=== PATIENT | female | born 1985 | race Caucasian/White ===

== ENCOUNTER 2016-10-20 23:25 | Emergency (ER) | payer OTHER ==
[~2016-10-20] VITALS: Ht 162.6 cm; Wt 63.0 kg
[~2016-10-20 23:25] MED LIST: DEPO PROVERA IM; IBUP-1827 PO; METO10TA3 PO; PROM25TA14 PO
[2016-10-20 23:38] VITALS: BP 134/73; PULSE 66; RESP 18; O2SAT 98
--- NOTE | 2016-10-20 23:58 | ED.REPORT ---
HPI-Abd Pain F Under 40 Date of Service Oct 20, 2016 ED Provider: Jose Masterson Patient is a 31 year old female with a hx of endometriosis who presents to the ED with multiple medical complaints. Associated symptoms include abdominal pain , dysuria, lightheadedness, headache, nausea, hot flashes, and blurred vision. She denies diarrhea, fever, vomiting, or any other symptoms. She gets Lupron injections and feels like it is wearing off. Nursing Notes Stated Complaint: STOMACH PAIN,LIGHT HEADED Chief Complaint: Female Abdominal Pain Nursing Notes Reviewed: Yes Allergies: Coded Allergies: codeine (Verified Allergy, Severe, Nausea,Vomiting,RASH, 02/03/16) ondansetron (Verified Allergy, Unknown, 02/03/16) Scheduled ([Depo Provera]) 150 MG IM Q 3 MOS Scheduled PRN Ibuprofen (Ibuprofen) 600 Mg Tablet 600 MG PO Q6H PRN PRN For Pain Metoclopramide (Metoclopramide) 10 Mg Tablet 10 MG PO QID PRN PRN For Nausea Prochlorperazine Maleate (Compazine Suppository) 25 Mg Supp.rect 25 MG RC Q8 PRN PRN For Nausea/Vomiting Promethazine (Promethazine) 25 Mg Tablet 25 MG PO Q4H PRN PRN For Nausea General Time Seen by MD: 23:57 Chief Complaint Abdominal pain Hx Obtained From: Patient Arrived By: Walk-in Onset Occurred: Onset unknown Location: : Diffuse Quality: Painful Severity: Current: Moderate Severity: Maximum: Moderate Associated with: Reports: Urinary tract symptoms Past Medical History Past Medical History Endometriosis Anxiety Aortic stenosis HPV Reports: Asthma Past Surgical History exploratory laparoscopy endometrial polypectomy Family History Noncontributory Smoking History Former Smoker Social History Alcohol Use: Denies alcohol use Other Social History: Local resident Ambulatory Status Independent Review of Systems Review of Systems Note: +hot flashes Constitutional: Denies: Fever GI: Reports: Abdominal pain, Nausea, Denies: Diarrhea, Vomiting Female: Reports: Dysuria Complete sys rev & neg: except as marked. Eyes: Reports: Blurred bilateral Neurologic: Reports: Headache Physical Exam Initial Vital Signs Vital Signs (First) Date Time Temp Pulse Resp B/P Pulse Ox O2 Delivery O2 Flow Rate FiO2 10/20/16 23:38 36.8 66 18 134/73 98 Room Air Initial VS: Reviewed, Vital signs normal Head / Eyes: Atraumatic, Normocephalic Neck: Full range of motion Skin: Warm, Dry Neurologic: Alert, Oriented, Nonfocal Psychiatric: Mood/affect normal, Behavior normal, Normal thought content General/Constitutional: Awake, Alert, Well developed Respiratory / Chest: Breath sounds NL, Breath sounds = bilat, No respiratory distress Cardiovascular: Heart rate NL, Regular rhythm, Heart sounds NL Abdomen: Soft Minimally tender to palpation Back: Atraumatic Mouth: Positive: Mucous membranes dry Interpretation & Diagnostics Lab Results Interpretation Result Diagram: 10/21/16 0029 10/21/16 0029 Test 10/21/16 00:29 10/21/16 01:33 White Blood Count 6.8th/mm3 (3.8-10.1) Red Blood Count 5.14mil/mm3 (3.90-5.20) Hemoglobin 13.5g/dL (12.0-15.6) Hematocrit 41.1% (35.0-46.0) Mean Corpuscular Volume 80.0fL (81-100) Mean Corpuscular Hemoglobin 26.3pg (27.0-35.0) Mean Corpuscular Hemoglobin Concent 32.8% (32.0-37.0) Red Cell Distribution Width 16.0% (12.3-15.4) Platelet Count 173bil/L (150-400) Neutrophils (%) (Auto) 59.4% (40-74) Lymphocytes (%) (Auto) 26.2% (14-46) Monocytes (%) (Auto) 11.6% (4-12) Eosinophils (%) (Auto) 2.3% (0-5) Basophils (%) (Auto) 0.4% (0-3) Sodium Level 140mEq/L (134-144) Potassium Level 4.5mEq/L (3.5-5.2) Chloride Level 100mEq/L (97-108) Carbon Dioxide Level 26mmol/L (18-29) Blood Urea Nitrogen 19mg/dL (6-20) Creatinine 0.93mg/dL (0.57-1.00) Estimat Glomerular Filtration Rate 101mL/min (>59) Glucose Level 92mg/dL (60-99) Calcium Level 9.4mg/dL (8.5-10.1) Magnesium Level 2.1mg/dL (1.6-2.6) Total Bilirubin 0.2mg/dL (0.0-1.2) Aspartate Amino Transf (AST/SGOT) 18U/L (0-50) Alanine Aminotransferase (ALT/SGPT) 15U/L (0-32) Alkaline Phosphatase 81U/L (25-150) Total Protein 7.4g/dL (6.4-8.4) Albumin 4.1g/dL (3.4-5.0) Lipase 38U/L (13-60) Urine Color Yellow (YELLOW) Urine Appearance Clear (CLEAR,HAZY) Urine pH 6.5 (5.0-8.0) Urine Specific [place] 1.010 (1.003-1.035) Urine Protein Negativemg/dL (NEG,TRACE) Urine Glucose (UA) Negativemg/dL (NEGATIVE) Urine Ketones Negativemg/dL (NEGATIVE) Urine Occult Blood Negative (NEGATIVE) Urine Nitrite Negative (NEGATIVE) Urine Bilirubin Negative (NEGATIVE) Urine Urobilinogen Normalmg/dL (NORMAL) Urine Leukocyte Esterase Negative (NEGATIVE) Urine RBC 0-2/hpf (0-2) Urine WBC 0-5/hpf (0-5) Urine Epithelial Cells Few/hpf (NONE-MOD) Urine Crystals None seen (NONE SEEN) Urine Bacteria None/hpf (NONE-FEW) Urine Hyaline Casts None/lpf (NONE) Urine Granular Casts None seen (NONE SEEN) Urine Waxy Casts None seen (NONE SEEN) Urine Red Blood Cell Casts None seen (NONE SEEN) Urine White Blood Cell Casts None seen (NONE SEEN) Urine Mucus None seen (None Seen) Urine Trichomonas None seen (NONE SEEN) Urine Yeast None (NONE SEEN) Urinalysis Comment None Urine Culture Reflexed Not indicated Re-Eval/Medical Decision Med Decision/Clinical Course Med Decision/Clinical Course: 31-year-old with diffuse abdominal pain and migraine. Improved after IV fluids and meds here. No more headache and abdominal symptoms resolved. Home with Compazine suppositories for headache and nausea when necessary. Follow-up with PCP Re-Evaluation/Progress : Time of Eval: 02:08 )( Re-Eval Abdomen: Soft Re-Evaluation/Progress Note: Discussed plan for discharge. Patient understands and agrees with plan. All questions addressed at this time. Counseled Regarding: Diagnosis, Lab results, Need for follow-up, When/why to return to ED Discharge & Departure Primary Impression: Abdominal Pain Generalized Additional Impression: Migraine Migraine type: unspecified Status migrainosus presence: without status migrainosus Intractability: not intractable Qualified Code: G43.909 - Migraine, unspecified, not intractable, without status migrainosus Disposition: Home Discharge Condition All VS Reviewed: Yes Condition: Improved Additional Instructions: Your labs are reassuring. I do not suspect a significant pathology in the abdomen. The nausea and generalized malaise are more likely related to her migraine. Follow-up with your doctor in the office. Compazine suppository if needed for nausea and for migraine. Return if any immediate issues, particularly worsening abdominal pain or intractable vomiting. Referrals: Pinky Fong MD (PCP) Scribe Attestation Portions of this note were transcribed by Eduar Santamaria. I, Dr. Masterson personally performed the history, physical exam and medical decision-making; I reviewed and confirmed the accuracy of the information in the transcribed note. Signed by: Eduar Santamaria 10/21/2016, 1408 copies to: Pinky Fong MD, Christopher W MD Oct 20, 2016 23:58 EDUAR SANTAMARIA Oct 21, 2016 00:07
[2016-10-21] MEDS ORDERED: 0.9% Sodium Chloride 1,000 ML IV ONE ×2 (00:04)
[2016-10-21] MEDS ORDERED: Haloperidol 5 mg/mL Inj IVPUSH ONE (00:05)
[2016-10-21] MEDS ORDERED: Ketorolac 15 mg/mL Inj IVPUSH ONE (00:05)
[2016-10-21] MEDS ORDERED: Dexamethasone 10 mg/mL Inj IVPUSH ONE (00:05)
[2016-10-21 00:44] LABS: BASOPHILS % (AUTO) 0.4 % (0-3); EOSINOPHILS % (AUTO) 2.3 % (0-5); MONOCYTES % (AUTO) 11.6 % (4-12); Mean Corpuscular Hemoglobin 26.3 pg (27.0-35.0); NEUTROPHILS % (AUTO) 59.4 % (40-74); Platelet Count 173 bil/L (150-400)
[2016-10-21 01:20] LABS: Magnesium 2.1 mg/dL (1.6-2.6)
[2016-10-21] MEDS ORDERED: MetoCLOpramide 5 mg/mL 2 mL Inj IVPUSH ONE (01:35)
[2016-10-21 01:50] LABS: APPEARANCE,URINE CLEAR (CLEAR,HAZY); COLOR,URINE YELLOW (YELLOW); OCCULT BLOOD,URINE NEGATIVE (NEGATIVE); PH,URINE 6.5 (5.0-8.0); UROBILINOGEN,URINE NORMAL (NORMAL)
[2016-10-21] MEDS ORDERED: PROC25SU30 RC (02:04)
[2016-10-21 02:27] VITALS: BP 128/70; PULSE 68; RESP 17; O2SAT 99
== END 2016-10-21 02:28 | disposition home or self-care (01) ==
LOC: SED 23:25
DX: R10.84 Generalized abdominal pain (principal); G43.909 Migraine, unspecified, not intractable, without status migrainosus; R30.0 Dysuria; F41.9 Anxiety disorder, unspecified; J45.909 Unspecified asthma, uncomplicated; Z79.3 Long term (current) use of hormonal contraceptives; Z87.891 Personal history of nicotine dependence; Z86.19 Personal history of other infectious and parasitic diseases; Z87.42 Personal history of other diseases of the female genital tract; Z88.5 Allergy status to narcotic agent; Z88.8 Allergy status to other drugs, medicaments and biological substances
CPT/HCPCS: 36415; 80053; 81000; 81025; 83690; 83735; 85025; 96374; 96375; 99284; J1100; J1200; J1630; J1885; J2765; J7030